=== PATIENT | female | born 1995 | race Caucasian/White ===

== ENCOUNTER 2024-08-01 12:15 | Emergency (ER) | payer BC, SELFPAY ==
[2024-08-01] VITALS (10 sets, daily range): BP systolic 120–148; BP diastolic 64–95; PULSE 58–83; RESP 12–24; O2SAT 98–100
--- NOTE | ~2024-08-01 | XR_ITS ---
EXAMINATION: XR chest 2V 08/01/2024 12:56 INDICATION: Chest pain PROCEDURE: 2 view chest COMPARISON: No prior studies for comparison. FINDINGS: The lungs are clear. The cardiomediastinal silhouette is within normal limits. There are no pleural effusions. There is no pneumothorax suspected. IMPRESSION: 1: NO ACUTE CARDIOPULMONARY DISEASE. Reviewed, dictated and finalized at location A.
--- NOTE | 2024-08-01 12:24 | ECG_ITS ---
Test Date: 2024-08-01 12:31:10 Measurements Intervals [place] Rate: 74 P: 70 MT: 136 QRS: 58 QRSD: 94 T: 25 QT: 384 QTc: 427 Interpretive Statements SINUS RHYTHM WITH MARKED SINUS ARRHYTHMIA BORDERLINE T WAVE ABNORMALITY- ANTERIOR LEADS BASELINE ARTIFACT- I, II, III, AVR, AVL ,AVF BORDERLINE ECG No previous ECG available for comparison Electronically Signed On 08-01-2024 12:46:32 CDT by Hermilo Ventura D.O.
[2024-08-01 12:39] LABS: Basophils Percent Auto 0.3 % (0.2-1.2); Eosinophils Absolute Auto 0.2 K/mm3 (0-0.3); Eosinophils Percent Auto 2.4 % (0-4.4); Hematocrit 42.1 % (37.0-47.0); Hemoglobin 13.6 g/dL (12.0-15.0); Immature Granulocyte Absolute 0.03 K/mm3 (0.00-0.031); Immature Granulocyte Percent A 0.3 % (0-0.5); Lymphocytes Absolute Auto 3.32 K/mm3 (0.9-3.2); Lymphocytes Percent Auto 35.9 % (18.3-44.2); Mean Corpuscular HGB Conc 32.3 g/dl (32-36); Mean Corpuscular Hemoglobin 28.8 pg (26-34); Mean Corpuscular Volume 89.2 fl (80-100); Mean Platelet Volume 10.9 fl (7.4-10.4); Monocytes Absolute Auto 0.7 K/mm3 (0.1-0.6); Monocytes Percent Auto 7.7 % (2.6-8.5); Neutrophils Percent Auto 53.4 % (45.5-73.1); Platelet Count Result 246 k/mm3 (150-375); Red Blood Count 4.72 M/mm3 (4.2-5.4); Red Cell Distribution Width 12.5 % (11.5-14.5); White Blood Count 9.3 K/mm3 (4.5-10.0)
[2024-08-01 12:56] LABS: Alanine Aminotransferase 16 U/L (6-35); Albumin Level 4.7 g/dL (3.5-5.1); Alkaline Phosphatase 77 U/L (38-126); Anion Gap 9 mmol/L (4-12); Aspartate Amino Transferase 22 U/L (14-36); Bilirubin,Total 0.4 mg/dL (0.2-1.3); Blood Urea Nitrogen 12 mg/dL (7-17); Carbon Dioxide 26 mmol/L (22-30); Chloride 103 mmol/L (98-107); Estimated CRCL calculation 89 ml/min; Estimated Glomerular Filt Rate > 60; Glucose 89 mg/dL (65-110); Lipase 83 U/L (23-300); Potassium 3.5 mmol/L (3.4-5.0); Sodium 138 mmol/L (137-145)
[2024-08-01 12:59] LABS: INR 0.8
[2024-08-01 13:00] LABS: Partial Thromboplastin Time 25.5 Seconds (22.3-36.8)
[2024-08-01 13:08] LABS: Troponin I < 0.012 ng/mL (0.000-0.034)
--- OUTSIDE RECORDS SUMMARY | 2024-08-01 13:58 | XMS_ITS | Continuity of Care Document ---
Author Organization [facility] Address [address] [place] [address] Phone Care Team Providers Care Hot Dog Vender Name Role Phone Unavailable Unavailable Unavailable Allergies, Adverse Reactions, Alerts Substance Reaction Status Criticality CEPHALEXIN MONOHYDRATE rash Active No In formation Medications Medication Instructions Dosage Effective Dates (start - stop) Status Comments Mononessa (28) 0.25 mg-35 mcg tablet take 1 Tablet by mouth route every day 1 Tablet - Active Procedures Procedure Date OFFICE/OUTPATIENT VISIT, [facility] Advance Directives Directive Yes / No Effective Date File Name No Information Encounters Encounter Description Practice Location Reason(s) For Visit Diagnoses Date Provider Providers Copied on Encounter [facility], [address], [place], [place], [id number] , [place] tel: [phone] [facility] [place] No Information 4 No Information OFFICE/OUTPA TIENT VISIT, [facility], [address], [place], [place], [id number] , [place] tel: [phone] [facility] [place] control (chief complaint) General counseling on prescription of oral contraceptivesNeed for prophylactic vaccination and inoculation, other viral diseases 3 No Information Family History Family Member Type Diagnosis Age At Onset No Information Payers Payer name Insurance type Covered libertarian ID Authoriza tion(s) No Information Social History Type Description Quantity Date Captured Comments Sex Female Smoking Status No Information Chief Complaint And Reason For Visit No Information Reason For Referral Reason For Referral No Information History Of Present Illness Encounter Date Complaint History Of Prese nt Illness No Information Functional Status Date Functional Assessmen t No Information Instructions Date Instruction Additional Infor mation No Information Assessments Type Assessment Date No Information Patient Care Teams Name Effective Dates (start - stop) Status Members No Information
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
--- NOTE | 2024-08-01 15:03 | ED_ITS ---
HPI - Chest Pain General Chief Complaint: Chest Pain Stated Complaint: chest pain Time Seen by Provider: 08/01/24 13:34 History of Present Illness HPI narrative: 28-year-old female with a past medical history including anxiety. She presents to the emergency department chief complaint of intermittent chest pain for last 4 months. She states approximately twice a month she gets episodes where she gets left-sided chest pain almost like a pressure sensation that is short-lived after a minute and dissipates. She states she had an episode this is in the car while driving to work at about 8:00 a.m.. She called her regular doctor who was encouraging her to come to the ER for evaluation. She has not been evaluated for chest pain previously. She has a history of coronary disease in the family at a young age but no personal history of coronary disease to her knowledge. She has no other comorbidities. Does not take any chronic medications aside from her anxiety medications. No drug use aside from marijuana. She was otherwise in her normal state of health. No fever or chills. No shortness of breath associated with this. No DVT or PE history. No long travel or recent procedures. She was otherwise in her normal state of health. Related Data Allergies Allergy/AdvReac Type Severity Reaction Status Date / Time cephalexin Allergy Unknown Unknown Verified 08/01/24 13:58 Review of Systems 2 Review of Systems: [facility] Family History Family History Mother Hypertension Family history of elevated blood lipids Family history of diabetes mellitus in first degree relative Father Hypertension Family history of osteoarthritis Family history of elevated blood lipids Other Family history of arthritis Social History Social History Smoking status: Current every day smoker Alcohol intake: current Exam 2 Narrative: GENERAL: [Well-appearing, well-nourished, and in no acute distress.] HEAD: [Normocephalic, atraumatic.] EYES: [PERRLA and EOMI.] ENT: Nares clear, no rhinorrhea or epistaxis. Mucous membranes moist. NECK: Supple. CHEST: [Clear to auscultation. No respiratory distress.] HEART: [Regular rate and rhythm]. No murmur heard. [Normal peripheral pulses.] ABDOMEN: [Soft, nondistended], [nontender], [No rigidity or guarding] EXTREMITIES: Normal range of motion. [No edema.] SKIN: Warm, dry, no rash. NEURO: [No focal deficits]. Alert and oriented [x3.] PSYCH: [Normal mood and affect.] Course Vital Signs Vital signs: Vital Signs Pulse Rate 83 08/01/24 12:35 Respiratory Rate 13 08/01/24 12:35 Blood Pressure 148/81 H 08/01/24 12:35 Pulse Oximetry 100 08/01/24 12:35 Pulse Rate 68 08/01/24 15:17 Respiratory Rate 15 08/01/24 15:17 Blood Pressure 139/81 08/01/24 15:17 Pulse Oximetry 100 08/01/24 15:17 MDM - Chest Pain MDM Narrative Medical decision making narrative: 28-year-old otherwise healthy female with history of anxiety presenting to the emergency room with chest pain. She gets occasional chest pains up to twice a month for last 4 months in the left side of her chest that lasts about 1 minute. No precipitating factors. No trauma or injury. No recent procedures. No history of DVT, PE or any cardiac disease. She has normal vital signs with a tachycardia, fever, hypoxia blood pressure concerns. She is not remarkable physical examination. Patient has a history of family with coronary disease at a young age but no personal history to her knowledge. Cardiac workup was ordered here given her symptomatology including serial troponins, EKG and chest x-ray. D-dimer was also ordered for screening a potential thromboembolic disease although very unlikely. Chest x-ray interpreted without any acute findings an EKG was nonischemic. Workup shows no leukocytosis or anemia. Normal platelet count. Coagulation panel within normal limits. Negative troponins. Normal electrolytes, renal and hepatic function panel. Normal lipase. Chest x-ray without any acute cardiopulmonary disease. EKG shows sinus rhythm, no ST segment elevations, depressions or inversions. Negative D-dimer. Patient is safe and stable for discharge home at this time with regular PCP follow-up. Patient's questions were answered she was encouraged to return with any new or worsening concerns. Medical Records Data Attestation: I reviewed the patient's medical records. Lab Data Attestation: I reviewed the patient's lab results. 08/01/24 12:33 08/01/24 12:33 Labs: Lab Results 08/01/24 08/01/24 Range/Units 12:33 15:14 WBC 9.3 (4.5-10.0) K/mm3 RBC 4.72 (4.2-5.4) M/mm3 Hgb 13.6 (12.0-15.0) g/dL Hct 42.1 (37.0-47.0) % MCV 89.2 (80-100) fl MCH 28.8 (26-34) pg MCHC 32.3 (32-36) g/dl RDW 12.5 (11.5-14.5) % Plt Count 246 (150-375) k/mm3 MPV 10.9 H (7.4-10.4) fl Immature Gran % (Auto) 0.3 (0-0.5) % Neut % (Auto) 53.4 (45.5-73.1) % Lymph % (Auto) 35.9 (18.3-44.2) % Don[place]han % (Auto) 7.7 (2.6-8.5) % Eos % (Auto) 2.4 (0-4.4) % Baso % (Auto) 0.3 (0.2-1.2) % Lymph # (Auto) 3.32 H (0.9-3.2) K/mm3 Don[place]han # (Auto) 0.7 H (0.1-0.6) K/mm3 Eos # (Auto) 0.2 (0-0.3) K/mm3 Baso # (Auto) 0.0 (0.0-0.1) K/mm3 Abs Immat Gran (auto) 0.03 (0.00-0.031) K/mm3 Absolute Neuts (auto) 5.0 (1.3-6.7) K/mm3 Absolute Nucleated RBC 0.000 (0.0-0.012) K/mm3 Nucleated RBC % 0.0 (0.0-0.2) % PT 12.0 (11.1-14.7) Seconds INR 0.8 APTT 25.5 (22.3-36.8) Seconds D-Dimer 0.28 (<0.48) ug/mL Sodium 138 (137-145) mmol/L Potassium 3.5 (3.4-5.0) mmol/L Chloride 103 (98-107) mmol/L Carbon Dioxide 26 (22-30) mmol/L Anion Gap 9 (4-12) mmol/L BUN 12 (7-17) mg/dL Creatinine 0.76 (0.7-1.0) mg/dL Estim Creat Clear Calc 89 ml/min Estimated GFR > 60 (59 - ) Glucose 89 (65-110) mg/dL Calcium 9.0 (8.4-10.2) mg/dL Total Bilirubin 0.4 (0.2-1.3) mg/dL AST 22 (14-36) U/L ALT 16 (6-35) U/L Alkaline Phosphatase 77 (38-126) U/L Troponin I < 0.012 < 0.012 (0.000-0.034) ng/mL Total Protein 8.0 (6.3-8.2) g/dL Albumin 4.7 (3.5-5.1) g/dL Lipase 83 (23-300) U/L Imaging Data Attestation: I personally reviewed and interpreted this imaging study as follows: My impression: Impressions Chest X-Ray 08/01/24 13:02 IMPRESSION: 1: NO ACUTE CARDIOPULMONARY DISEASE. ECG Data EKG #1: Attestation: I personally reviewed and interpreted this ECG as follows: ECG completion date: 08/01/24 ECG completion time: 12:31 Prior ECG tracings: not available for review Interpretation: Red trachea rate of 74 beats per minute, QRS 94, QTC 427. NJ interval 136. Sinus rhythm without any ST segment elevations, depressions or inversions. No signs of right heart strain. Good R-wave progression. No previous EKG for comparison. Final interpretation normal sinus rhythm. Discharge Plan Discharge Clinical Impression: Atypical chest pain Patient Disposition: Home Condition: Stable Instructions: Antibiotic Form, Chest Pain (ED), Costochondritis (ED), Chest Wall Pain (ED) Additional Instructions: Cardiac markers were negative, blood clot markers were negative. Your laboratory studies are all reassuring your chest x-ray was clear. Your primary care provider will have to follow you and evaluate you further with any other additional laboratory studies or evaluations that are needed but no urgent or emergent concerns today. Return with any new or worsening concerns at any time. Patient Language: Swedish Follow-up/Referrals: Ayse,Keo Carver MD [Primary Care Provider] - Time of Disposition: 16:39 Quality HEART score for chest pain patients History: slightly suspicious ECG: normal Age: < or = to 45 years Risk factors: no risk factors known Troponin: < or = to 1x normal limit Heart score: 0
--- NOTE | 2024-08-01 15:08 | ECG_ITS ---
Test Date: 2024-08-01 15:12:59 Measurements Intervals [place] Rate: 66 P: 40 MA: 131 QRS: 42 QRSD: 95 T: 9 QT: 413 QTc: 434 Interpretive Statements SINUS RHYTHM WITH SINUS ARRHYTHMIA MINIMAL Q WAVES- HIGH LATERAL LEADS BASELINE ARTIFACT- I, II, III, AVR, AVL, AVF, V1-V6 BORDERLINE ECG Compared to ECG 08/01/2024 12:31:10 No significant changes Electronically Signed On 08-01-2024 15:38:21 CDT by Hermilo Ventura D.O.
[2024-08-01 15:40] LABS: D Dimer 0.28 ug/mL (<0.48)
[2024-08-01 15:48] LABS: Troponin I < 0.012 ng/mL (0.000-0.034)
--- OUTSIDE RECORDS SUMMARY | 2024-08-01 16:10 | XMS_ITS | Continuity of Care Document ---
Author Organization [facility] Address [address] [place] [address] Phone Care Team Providers Care Data Center Engineer Name Role Phone Unavailable Unavailable Unavailable Allergies, Adverse Reactions, Alerts Substance Reaction Status Criticality CEPHALEXIN MONOHYDRATE rash Active No In formation Medications Medication Instructions Dosage Effective Dates (start - stop) Status Comments Mononessa (28) 0.25 mg-35 mcg tablet take 1 Tablet by mouth route every day 1 Tablet - Active Procedures Procedure Date OFFICE/OUTPATIENT VISIT, [facility] Advance Directives Directive Yes / No Effective Date File Name No Information Encounters Encounter Description Practice Location Reason(s) For Visit Diagnoses Date Provider Providers Copied on Encounter [email or web address] [address], [place], [place], [id number] , [place] tel: [phone] [facility] No Information 4 No Information OFFICE/OUTPA TIENT VISIT, [facility], [address], [place], [place], [id number] , [place] tel: [phone] [facility] control (chief complaint) General counseling on prescription of oral contraceptivesNeed for prophylactic vaccination and inoculation, other viral diseases 3 No Information Family History Family Member Type Diagnosis Age At Onset No Information Payers Payer name Insurance type Covered constitution party ID Authoriza tion(s) No Information Social History [...]
== END 2024-08-01 16:50 | disposition home or self-care (01) ==
PROVIDERS: Emergency Medicine; Emergency Provider Student in an Organized Health Care Education/Training Program; PCP Family Medicine
DX: R07.89 Other chest pain (principal); F17.210 Nicotine dependence, cigarettes, uncomplicated; F41.9 Anxiety disorder, unspecified
CPT/HCPCS: 36415; 71046; 80053; 83690; 84484; 85025; 85380; 85610; 85730; 93005; 99284

== ENCOUNTER 2025-03-22 06:45 | Emergency (ER) | payer SELFPAY ==
--- NOTE | ~2025-03-22 | CT_ITS ---
EXAMINATION: CT abdomen pelvis w con DATE: 03/22/2025 08:23 INDICATION: Diffuse abdominal pain TECHNIQUE: Computed tomography (CT) of the abdomen and pelvis was performed with 100 mL Omnipaque-350 intravenous contrast. Automated exposure control and iterative reconstruction technique were employed. The dose-length product was 687.51 mGy-cm. COMPARISON: 04/25/2015 FINDINGS: 3 mm nodule at the lingula which given size and patient age is most likely sequela of old granulomatous disease. Heart size is normal. No pericardial or pleural effusion. Liver, gallbladder, spleen, pancreas, bilateral adrenal glands and kidneys are normal. Bowels including the appendix are normal. Bladder, uterus and bilateral adnexa are normal. No free intraperitoneal gas or fluid. No pathologically enlarged abdominal or pelvic lymphadenopathy. Mild thoracic and lumbar spondylosis. IMPRESSION: 1. No acute intra-abdominal/pelvic process. Reviewed, dictated and finalized at location A. SBURY MACHINE OPERATOR
[2025-03-22 07:01] VITALS: BP 120/85; PULSE 90; RESP 16; TEMP 37; O2SAT 98
--- NOTE | 2025-03-22 07:10 | PC.NURSE ---
Took report at [id number]
[2025-03-22 07:26] LABS: Hematocrit 37.9 % (37.0-47.0); Hemoglobin 12.7 g/dL (12.0-15.0); Immature Granulocyte Percent A 0.3 % (0-0.5); Lymphocytes Absolute Auto 0.90 K/mm3 (0.9-3.2); Mean Corpuscular HGB Conc 33.5 g/dl (32-36); Mean Corpuscular Hemoglobin 29.2 pg (26-34); Mean Corpuscular Volume 87.1 fl (80-100); Nucleated Red Blood Cells Absolute Auto 0.000 K/mm3 (0.0-0.012); Nucleated Red Blood Cells Perc 0.0 % (0.0-0.2); Platelet Count Result 263 k/mm3 (150-375); Red Blood Count 4.35 M/mm3 (4.2-5.4); White Blood Count 11.8 K/mm3 (4.5-10.0)
[2025-03-22 07:43] LABS: Alanine Aminotransferase 29 U/L (6-35); Albumin Level 4.7 g/dL (3.5-5.1); Alkaline Phosphatase 105 U/L (38-126); Aspartate Amino Transferase 34 U/L (14-36); Bilirubin,Total 0.6 mg/dL (0.2-1.3); Blood Urea Nitrogen 11 mg/dL (7-17); Calcium 9.1 mg/dL (8.4-10.2); Carbon Dioxide 18 mmol/L (22-30); Estimated CRCL calculation 114 ml/min; Estimated Glomerular Filt Rate > 60; Glucose 184 mg/dL (65-110); Lipase 125 U/L (23-300); Total Protein 8.1 g/dL (6.3-8.2)
[2025-03-22] MEDS: ONDANSETRON INJ 4 MG/2 ML VIAL IV PUSH (07:43)
--- NOTE | 2025-03-22 07:43 | ED_ITS ---
HPI - General Adult General Chief complaint: Nausea/Vomiting/Diarrhea Stated complaint: Vomiting since 1999 Time Seen by Provider: 03/22/25 07:35 History of Present Illness MD complaint: 29-year-old female presents with abdominal pain nausea vomiting diarrhea. Related Data Allergies Allergy/AdvReac Type Severity Reaction Status Date / Time cephalexin Allergy Unknown Unknown Verified 08/01/24 13:58 [facility] Family History Family History Mother Hypertension Family history of elevated blood lipids Family history of diabetes mellitus in first degree relative Father Hypertension Family history of osteoarthritis Family history of elevated blood lipids Other Family history of arthritis Social History Social History Smoking status: Current every day smoker Alcohol intake: current Course Vital Signs Vital signs: Vital Signs Temperature 37.0 C 03/22/25 07:01 Pulse Rate 90 03/22/25 07:01 Respiratory Rate 16 03/22/25 07:01 Blood Pressure 120/85 03/22/25 07:01 Pulse Oximetry 98 03/22/25 07:01 Oxygen Delivery Room Air 03/22/25 07:01 Temperature 37.0 C 03/22/25 07:01 Pulse Rate 90 03/22/25 07:01 Respiratory Rate 16 03/22/25 07:01 Blood Pressure 120/85 03/22/25 07:01 Pulse Oximetry 98 03/22/25 07:01 Oxygen Delivery Room Air 03/22/25 07:01 [facility] Lab Data 03/22/25 07:17 03/22/25 07:17 Labs: Lab Results 03/22/25 Range/Units 07:17 WBC 11.8 H (4.5-10.0) K/mm3 RBC 4.35 (4.2-5.4) M/mm3 Hgb 12.7 (12.0-15.0) g/dL Hct 37.9 (37.0-47.0) % MCV 87.1 (80-100) fl MCH 29.2 (26-34) pg MCHC 33.5 (32-36) g/dl RDW 12.5 (11.5-14.5) % Plt Count 263 (150-375) k/mm3 MPV 11.5 H (7.4-10.4) fl Immature Gran % (Auto) 0.3 (0-0.5) % Neut % (Auto) 89.7 H (45.5-73.1) % Lymph % (Auto) 7.6 L (18.3-44.2) % [place] % (Auto) 2.2 L (2.6-8.5) % Eos % (Auto) 0.0 (0-4.4) % Baso % (Auto) 0.2 (0.2-1.2) % Lymph # (Auto) 0.90 (0.9-3.2) K/mm3 [place] # (Auto) 0.3 (0.1-0.6) K/mm3 Eos # (Auto) 0.0 (0-0.3) K/mm3 Baso # (Auto) 0.0 (0.0-0.1) K/mm3 Abs Immat Gran (auto) 0.04 H (0.00-0.031) K/mm3 Absolute Neuts (auto) 10.6 H (1.3-6.7) K/mm3 Absolute Nucleated RBC 0.000 (0.0-0.012) K/mm3 Nucleated RBC % 0.0 (0.0-0.2) % Sodium 138 (137-145) mmol/L Potassium 3.4 (3.4-5.0) mmol/L Chloride 109 H (98-107) mmol/L Carbon Dioxide 18 L (22-30) mmol/L Anion Gap 11 (4-12) mmol/L BUN 11 (7-17) mg/dL Creatinine 0.64 L (0.7-1.0) mg/dL Estim Creat Clear Calc 114 ml/min Estimated GFR > 60 (59 - ) Glucose 184 H (65-110) mg/dL Calcium 9.1 (8.4-10.2) mg/dL Total Bilirubin 0.6 (0.2-1.3) mg/dL AST 34 (14-36) U/L ALT 29 (6-35) U/L Alkaline Phosphatase 105 (38-126) U/L Total Protein 8.1 (6.3-8.2) g/dL Albumin 4.7 (3.5-5.1) g/dL Lipase 125 (23-300) U/L Discharge Plan Discharge Patient Language: Portuguese Follow-up/Referrals: UNKNOWN,DOCTOR [Primary Care Provider]
[2025-03-22] MEDS: SODIUM CHLORIDE 0.9% IV 1,000 ML 999 ML IV CONT (07:44)
[2025-03-22] MEDS: FAMOTIDINE 20 MG/2 ML VIAL IV PUSH (07:44)
[2025-03-22 07:51] LABS: Anion Gap 11 mmol/L (4-12); Chloride 109 mmol/L (98-107); Potassium 3.4 mmol/L (3.4-5.0); Sodium 138 mmol/L (137-145)
--- NOTE | 2025-03-22 07:56 | ED_ITS ---
HPI - General Adult General Chief complaint: Nausea/Vomiting/Diarrhea Stated complaint: Vomiting since 1999 Time Seen by Provider: 03/22/25 07:35 History of Present Illness HPI narrative: 29-year-old female presents emergency department with abdominal pain diarrhea nausea vomiting. Patient is got back from a cruise, states she has sick contacts with similar symptoms. She denies any blood in either her vomitus or her diarrhea. No recent antibiotics. States that she has had approximately 10+ episodes of diarrhea nausea vomiting. She also had significant abdominal pain. It is otherwise healthy takes no medications or prior abdominal surgical history. Denies any fevers chills, states she had some alcohol intake on a cruise ship but nothing excessive denies any possibility of being . Related Data Allergies Allergy/AdvReac Type Severity Reaction Status Date / Time cephalexin Allergy Unknown Unknown Verified 08/01/24 13:58 Review of Systems 2 Review of Systems: All systems reviewed & are unremarkable except as noted in HPI and below PMFSH Family History Family History Mother Hypertension Family history of elevated blood lipids Family history of diabetes mellitus in first degree relative Father Hypertension Family history of osteoarthritis Family history of elevated blood lipids Other Family history of arthritis Social History Social History Smoking status: Current every day smoker Alcohol intake: current Exam 2 Narrative: EXAMINATION OF ORGAN SYSTEMS/BODY AREAS: Constitutional: Vital signs per nursing GENERAL: Patient is actively vomiting. HEAD: Normal with no signs of head trauma. EYES: EOMI, conjunctiva normal ENT: Hearing grossly intact LUNGS: Nonlabored breathing. Clear to auscultation bilaterally HEART: [Regular rate and rhythm] ABD: The abdomen is soft nondistended but is moderately tender to palpation throughout without any rebound or guarding. No flank tenderness. EXT: Normal range of motion SKIN: [No rashes or lesions.] NEURO: [Alert. No gross focal sensory or strength deficits.] PSYCH: Normal affect Course Vital Signs Vital signs: Vital Signs Temperature 37.0 C 03/22/25 07:01 Pulse Rate 90 03/22/25 07:01 Respiratory Rate 16 03/22/25 07:01 Blood Pressure 120/85 03/22/25 07:01 Pulse Oximetry 98 03/22/25 07:01 Oxygen Delivery Room Air 03/22/25 07:01 Temperature 37.0 C 03/22/25 07:01 Pulse Rate 86 03/22/25 08:00 Respiratory Rate 16 03/22/25 08:00 Blood Pressure 160/43 H 03/22/25 08:00 Pulse Oximetry 98 03/22/25 08:00 Oxygen Delivery Room Air 03/22/25 07:01 [facility] Differential Diagnosis Differential Diagnosis: 29-year-old female presents with nausea vomiting diarrhea. I was in the differential is a viral gastroenteritis versus alcoholic gastritis versus pancreatitis versus less likely a perforated viscus or an obstructive process. Given the amount of diarrhea and vomiting and concern for acute kidney injury acute renal failure severe electrolyte metabolic disturbance. Will start with IV hydration send basic labs do symptomatic treatment with PPI antiemetic addition to IV Dilaudid for pain. Will obtain a CT abdomen pelvis with IV contrast applied for evaluation or treatment. Results and re-evaluation Upon re-evaluation the patient feels significantly improved. Repeat abdominal exam is soft and non peritoneal. Labs reviewed within acceptable limits. Patient is requesting discharge presents in reasonable given her presentation I will send her home with antiemetics p.o. Bentyl and otherwise work note and strict return precautions she develop new concerning symptoms. All questions answered discharged in stable condition Medical Records I have reviewed the following patient records and this information was taken into consideration when formulating the assessment and plan.: previous labs and previous ER visits Lab Data [facility] Lab Attestation statement: I personally reviewed the patient's lab results. 03/22/25 07:17 03/22/25 07:17 Labs: Lab Results 03/22/25 03/22/25 03/22/25 Range/Units 07:17 08:52 08:57 WBC 11.8 H (4.5-10.0) K/mm3 RBC 4.35 (4.2-5.4) M/mm3 Hgb 12.7 (12.0-15.0) g/dL Hct 37.9 (37.0-47.0) % MCV 87.1 (80-100) fl MCH 29.2 (26-34) pg MCHC 33.5 (32-36) g/dl RDW 12.5 (11.5-14.5) % Plt Count 263 (150-375) k/mm3 MPV 11.5 H (7.4-10.4) fl Immature Gran % (Auto) 0.3 (0-0.5) % Neut % (Auto) 89.7 H (45.5-73.1) % Lymph % (Auto) 7.6 L (18.3-44.2) % [place] % (Auto) 2.2 L (2.6-8.5) % Eos % (Auto) 0.0 (0-4.4) % Baso % (Auto) 0.2 (0.2-1.2) % Lymph # (Auto) 0.90 (0.9-3.2) K/mm3 [place] # (Auto) 0.3 (0.1-0.6) K/mm3 Eos # (Auto) 0.0 (0-0.3) K/mm3 Baso # (Auto) 0.0 (0.0-0.1) K/mm3 Abs Immat Gran (auto) 0.04 H (0.00-0.031) K/mm3 Absolute Neuts (auto) 10.6 H (1.3-6.7) K/mm3 Absolute Nucleated RBC 0.000 (0.0-0.012) K/mm3 Nucleated RBC % 0.0 (0.0-0.2) % Sodium 138 (137-145) mmol/L Potassium 3.4 (3.4-5.0) mmol/L Chloride 109 H (98-107) mmol/L Carbon Dioxide 18 L (22-30) mmol/L Anion Gap 11 (4-12) mmol/L BUN 11 (7-17) mg/dL Creatinine 0.64 L (0.7-1.0) mg/dL Estim Creat Clear Calc 114 ml/min Estimated GFR > 60 (59 - ) Glucose 184 H (65-110) mg/dL Calcium 9.1 (8.4-10.2) mg/dL Total Bilirubin 0.6 (0.2-1.3) mg/dL AST 34 (14-36) U/L ALT 29 (6-35) U/L Alkaline Phosphatase 105 (38-126) U/L Total Protein 8.1 (6.3-8.2) g/dL Albumin 4.7 (3.5-5.1) g/dL Lipase 125 (23-300) U/L Urine Color Yellow (Yellow) Urine Appearance Clear (Clear) Urine pH 7.5 (5.0-9.0) Ur Specific [place] > 1.045 H (1.001-1.035) Urine Protein 1+ H (Negative) mg/dL Urine Glucose (UA) Trace H (Negative) mg/dL Urine Ketones 3+ H (Negative) mg/dL Ur Blood (Man) Negative (Negative) Urine Nitrate Negative (Negative) Urine Bilirubin Negative (Negative) Urine Urobilinogen 1.0 (<2.0) mg/dL Leukocyte Esterase Rfl Negative (Negative) JAVI/UL Urine RBC 0-2 (0-2) /hpf Urine WBC 0-5 (0-3) /hpf Ur Squamous Epith Cells None seen (Few) /hpf Urine Bacteria None seen /hpf Urine Casts 0-2 POC Urine HCG, Qual Negative (Negative) Imaging Data Attestation: I personally reviewed and interpreted this imaging study as follows: My impression: CT scan shows no evidence of free air or acute intra-abdominal process per my interpretation Radiologist's impression: ITS Impressions Abdomen/Pelvis CT 03/22/25 08:24 IMPRESSION: 1. No acute intra-abdominal/pelvic process. Discharge Plan Discharge Clinical Impression: Traveler's diarrhea, Food poisoning Patient Disposition: Home Condition: Stable Instructions: Traveler's Diarrhea (ED), Gastroenteritis (ED) Patient Language: [place] Prescriptions: New dicyclomine 10 mg capsule 10 mg PO BID Qty: 14 0RF loperamide 2 mg capsule 2 mg PO Q6H PRN (Reason: loose stool) Qty: 14 0RF ondansetron 4 mg tablet,disintegrating 4 mg PO Q8H Qty: 14 0RF Follow-up/Referrals: UNKNOWN,DOCTOR [Non-Staff] Time of Disposition: 09:27
[2025-03-22 08:00] VITALS: BP 160/43; PULSE 86; RESP 16; O2SAT 98
--- NOTE | 2025-03-22 08:00 | PC.NURSE ---
Pt stated that she is unable to urinate at this time.
[2025-03-22 08:59] LABS: BEDSIDEPREGUCG Negative (Negative)
[2025-03-22 09:10] LABS: Add Urine Microscopic? YES; Appearance Urine Clear (Clear); Glucose Urine UA Trace mg/dL (Negative); Leukocyte Esterase Ur Negative LEU/UL (Negative); Nitrate Urine Negative (Negative); Non Pathogenic Casts 0-2; Specific Grav Ur > 1.045 (1.001-1.035)
[2025-03-22 09:40] VITALS: BP 125/73; PULSE 97; RESP 16; O2SAT 99
== END 2025-03-22 09:45 | disposition home or self-care (01) ==
PROVIDERS: Student in an Organized Health Care Education/Training Program; Emergency Provider Emergency Medicine; PCP Nurse Practitioner
DX: A05.9 Bacterial foodborne intoxication, unspecified (principal); A09 Infectious gastroenteritis and colitis, unspecified; F17.200 Nicotine dependence, unspecified, uncomplicated
CPT/HCPCS: 36415; 74177; 80053; 81001; 81025; 83690; 85025; 96361; 96374; 96375; 99284; J1790; J2405; J7030; Q9967

== ENCOUNTER 2025-03-23 07:36 | Observation (INO) | payer BC, SELFPAY ==
[2025-03-23 07:48] VITALS: BP 100/66; PULSE 75; RESP 17; TEMP 36.4; O2SAT 100
[2025-03-23] MEDS: METOCLOPRAMIDE HCL INJ 10 MG/2 ML VIAL 5 MG IV PUSH ×2 (08:09→09:33)
[2025-03-23] MEDS: PANTOPRAZOLE SODIUM IV 40 MG VIAL IV PUSH (08:12)
[2025-03-23] MEDS: SODIUM CHLORIDE 0.9% IV 1,000 ML 999 ML IV CONT (08:12)
[2025-03-23 08:43] LABS: Hematocrit 39.0 % (37.0-47.0); Hemoglobin 13.1 g/dL (12.0-15.0); Immature Granulocyte Percent A 0.5 % (0-0.5); Lymphocytes Absolute Auto 1.72 K/mm3 (0.9-3.2); Mean Corpuscular HGB Conc 33.6 g/dl (32-36); Mean Corpuscular Hemoglobin 28.9 pg (26-34); Mean Corpuscular Volume 86.1 fl (80-100); Nucleated Red Blood Cells Absolute Auto 0.000 K/mm3 (0.0-0.012); Nucleated Red Blood Cells Perc 0.0 % (0.0-0.2); Platelet Count Result 301 k/mm3 (150-375); Red Blood Count 4.53 M/mm3 (4.2-5.4); White Blood Count 14.4 K/mm3 (4.5-10.0)
[2025-03-23 08:56] LABS: Alanine Aminotransferase 29 U/L (6-35); Albumin Level 4.6 g/dL (3.5-5.1); Alkaline Phosphatase 97 U/L (38-126); Anion Gap 11 mmol/L (4-12); Aspartate Amino Transferase 39 U/L (14-36); Bilirubin,Total 0.5 mg/dL (0.2-1.3); Blood Urea Nitrogen 11 mg/dL (7-17); Calcium 9.0 mg/dL (8.4-10.2); Carbon Dioxide 20 mmol/L (22-30); Chloride 108 mmol/L (98-107); Estimated CRCL calculation 101 ml/min; Estimated Glomerular Filt Rate > 60; Glucose 137 mg/dL (65-110); Potassium 3.1 mmol/L (3.4-5.0); Sodium 139 mmol/L (137-145); Total Protein 7.9 g/dL (6.3-8.2)
--- NOTE | 2025-03-23 09:22 | ED.NAVMDI ---
HPI - Nausea/Vomiting/Diarrhea General Chief complaint: Nausea/Vomiting/Diarrhea Stated complaint: n/v Time Seen by Provider: 03/23/25 07:53 Source: patient Mode of arrival: ambulatory Limitations: no limitations History of Present Illness HPI Narrative: 29-year-old otherwise healthy here with a complains of nausea, vomiting for past 3 days. Patient states that she was on a cruise ever seen she landed back she has been having these symptoms was seen yesterday here in the ER before, was given fluids and nausea medicine soon after she diet discharge she started having nausea and vomiting again. Denies any fever or chills. This morning when she threw up she had little blood in the vomitus. Denies any fever or chills . Upon chart review patient had a CT of the abdomen and pelvis which was unremarkable done yesterday MD elicited complaint: nausea and vomiting Onset (ago): day(s) (3) Description of vomiting: watery Associated nausea: Yes Associated abdominal pain: No Severity: severe Exacerbating factors: eating Relieving factors: none Context: foreign travel Associated symptoms: denies other symptoms Related Data Allergies Allergy/AdvReac Type Severity Reaction Status Date / Time cephalexin Allergy Unknown Unknown Verified 03/23/25 07:51 Review of Systems Review of Systems: All systems reviewed & are unremarkable except as noted in HPI and below Constitutional: Constitutional: Reports no additional constitutional complaints Eyes: Eyes: Reports no additional eye complaints ENT: Reports system reviewed and no additional complaints, except as documented Cardiovascular: Cardiovascular: Reports no additional cardiovascular complaints Respiratory: Respiratory: Reports no additional respiratory complaints Gastrointestinal: Gastrointestinal: Reports as per HPI Musculoskeletal: Musculoskeletal: Reports no additional musculoskeletal complaints Neurologic: Reports system reviewed and no additional complaints, except as documented [facility] Family History Family History Mother Hypertension Family history of elevated blood lipids Family history of diabetes mellitus in first degree relative Father Hypertension Family history of osteoarthritis Family history of elevated blood lipids Other Family history of arthritis Social History Social History Smoking status: Current every day smoker Alcohol intake: current Exam Narrative: GENERAL: Constantly and Violently Retching HEAD: Normocephalic, atraumatic. EYES: PERRLA and EOMI. ENT: Nares clear, no rhinorrhea or epistaxis. Mucous membranes moist. NECK: Supple. CHEST: Clear to auscultation. No respiratory distress. HEART: Regular rate and rhythm. No murmur heard. Normal peripheral pulses. ABDOMEN: Soft, nontender, nondistended, normal active bowel sounds. EXTREMITIES: Normal range of motion. No edema. SKIN: Warm, dry, no rash. NEURO: No focal deficits. Alert and oriented x3. PSYCH: Normal mood and affect. Course Course Emergency Course: Patient had no further episodes of of nausea or vomiting after receiving metoclopramide feels slightly better from, or movement I came out of the room she started retching again will repeat Reglan and also given IV Valium. She is agreeable with admission. Discussed with hospitalist will accept the patient. Vital Signs Vital signs: Vital Signs Temperature 36.4 C L 03/23/25 07:48 Pulse Rate 75 03/23/25 07:48 Respiratory Rate 17 03/23/25 07:48 Blood Pressure 100/66 03/23/25 07:48 Pulse Oximetry 100 03/23/25 07:48 Oxygen Delivery Room Air 03/23/25 07:48 Temperature 36.4 C L 03/23/25 07:48 Pulse Rate 75 03/23/25 07:48 Respiratory Rate 17 03/23/25 07:48 Blood Pressure 100/66 03/23/25 07:48 Pulse Oximetry 100 03/23/25 07:48 Oxygen Delivery Room Air 03/23/25 07:48 [facility] Narrative Medical decision making narrative: 29-year-old otherwise healthy here with nausea vomiting diarrhea recent trip on a cruise. Was seen yesterday CT was unremarkable will repeat the lab work start IV hydration along with IV metoclopramide Differential Diagnosis Differential Diagnosis: Gastroenteritis, food poisoning Medical Records I have reviewed the following patient records and this information was taken into consideration when formulating the assessment and plan.: previous labs and previous ER visits Lab Data [facility] Lab Attestation statement: I personally reviewed the patient's lab results. 03/23/25 08:08 03/23/25 08:08 Labs: Lab Results 03/23/25 Range/Units 08:08 WBC 14.4 H (4.5-10.0) K/mm3 RBC 4.53 (4.2-5.4) M/mm3 Hgb 13.1 (12.0-15.0) g/dL Hct 39.0 (37.0-47.0) % MCV 86.1 (80-100) fl MCH 28.9 (26-34) pg MCHC 33.6 (32-36) g/dl RDW 12.7 (11.5-14.5) % Plt Count 301 (150-375) k/mm3 MPV 11.7 H (7.4-10.4) fl Immature Gran % (Auto) 0.5 (0-0.5) % Neut % (Auto) 81.6 H (45.5-73.1) % Lymph % (Auto) 12.0 L (18.3-44.2) % [place] % (Auto) 5.6 (2.6-8.5) % Eos % (Auto) 0.0 (0-4.4) % Baso % (Auto) 0.3 (0.2-1.2) % Lymph # (Auto) 1.72 (0.9-3.2) K/mm3 [place] # (Auto) 0.8 H (0.1-0.6) K/mm3 Eos # (Auto) 0.0 (0-0.3) K/mm3 Baso # (Auto) 0.0 (0.0-0.1) K/mm3 Abs Immat Gran (auto) 0.07 H (0.00-0.031) K/mm3 Absolute Neuts (auto) 11.8 H (1.3-6.7) K/mm3 Absolute Nucleated RBC 0.000 (0.0-0.012) K/mm3 Nucleated RBC % 0.0 (0.0-0.2) % Sodium 139 (137-145) mmol/L Potassium 3.1 L (3.4-5.0) mmol/L Chloride 108 H (98-107) mmol/L Carbon Dioxide 20 L (22-30) mmol/L Anion Gap 11 (4-12) mmol/L BUN 11 (7-17) mg/dL Creatinine 0.72 (0.7-1.0) mg/dL Estim Creat Clear Calc 101 ml/min Estimated GFR > 60 (59 - ) Glucose 137 H (65-110) mg/dL Lactic Acid 2.1 H (0.7-2.0) mmol/L Calcium 9.0 (8.4-10.2) mg/dL Total Bilirubin 0.5 (0.2-1.3) mg/dL AST 39 H (14-36) U/L ALT 29 (6-35) U/L Alkaline Phosphatase 97 (38-126) U/L Total Protein 7.9 (6.3-8.2) g/dL Albumin 4.6 (3.5-5.1) g/dL Discharge Plan Discharge Clinical Impression: Intractable nausea and vomiting Patient Disposition: Still a Patient Condition: Stable Patient Language: Kinyarwanda Prescriptions: No Action dicyclomine 10 mg capsule 10 mg PO BID Qty: 14 0RF loperamide 2 mg capsule 2 mg PO Q6H PRN (Reason: loose stool) Qty: 14 0RF ondansetron 4 mg tablet,disintegrating 4 mg PO Q8H Qty: 14 0RF Follow-up/Referrals: Barrett,Donna Amezquita APRN [Primary Care Provider, Unknown] Time of Disposition: 09:29
[2025-03-23 09:29] VITALS: BP 135/96; PULSE 69; RESP 18; O2SAT 99
[2025-03-23] MEDS: diazePAM INJ (*CRX) 10 MG/2 ML SYRINGE 5 MG IV PUSH (09:33)
[2025-03-23] MEDS: SODIUM CHLORIDE 0.9% IV 1,000 ML 125 ML IV CONT ×2 (09:44→22:23)
[2025-03-23 09:56] VITALS: BP 124/76; PULSE 60; RESP 14; O2SAT 98
--- NOTE | 2025-03-23 09:57 | WPCEDHO ---
ED Hand Off Checklist All vitals saved: y IV Site documented:y All med administrations documented:y Triage Note Triage Note Pt to ED w/ reports of N/V and 03/23/25 07:48 mid abd pain rated a 3/10. Pt was seen in the ED yesterday and had labs and imaging, neg findings. 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 Pt took an ODT Zofran today, but states she is unable to keep anything down including fluids. Decreased urine output. Pt actively dry heaving in triage. Allergies cephalexin Allergy (Unknown, Verified 03/23/25 07:51) Unknown Family History (Last Reviewed 03/23/25 @ 09:25 by Twin Olivares MD) Mother Hypertension Family history of elevated blood lipids Family history of diabetes mellitus in first degree relative Father Hypertension Family history of osteoarthritis Family history of elevated blood lipids Other Family history of arthritis Active Medications including assessments/comments Sodium Chloride (Normal Saline Iv) 1,000 mls @ 125 mls/hr IV CONT .Q8H [facility] Last Admin: 03/23/25 09:44 Dose: 125 mls/hr Documented By: ANT Infusion/Titration Document 03/23/25 09:44 ANT (Rec: 03/23/25 09:44 ANT [id number]) Intake IV Site Peripheral Access Left Antecubital Container Volume 1,000 Waste Amount 0 Dosing Infusion Rate 125 Cumulative Dose Not Applicable Increase/Decrease Started Elapsed Time Elapsed Time ( 0m minutes) Administered/Completed Medications Discontinued Medications Diazepam (Diazepam Inj (*Crx) 10 Mg/2 Ml Syringe) 5 mg IV PUSH ONCE ONE Stop: 03/23/25 09:27 Last Admin: 03/23/25 09:33 Dose: 5 mg Documented By: ANT Sodium Chloride (Normal Saline Iv) 1,000 mls @ 999 mls/hr IV CONT .Q1H1M STA Stop: 03/23/25 08:59 Last Infusion: 03/23/25 09:00 Dose: Infused Documented By: Admin: 03/23/25 08:12 Dose: 999 mls/hr Documented By: ANT Metoclopramide HCl (Metoclopramide Hcl Inj 10 Mg/2 Ml Vial) 5 mg IV PUSH ONCE STA Stop: 03/23/25 08:00 Last Admin: 03/23/25 08:09 Dose: 5 mg Documented By: ANT Metoclopramide HCl (Metoclopramide Hcl Inj 10 Mg/2 Ml Vial) 5 mg IV PUSH ONCE STA Stop: 03/23/25 09:27 Last Admin: 03/23/25 09:33 Dose: 5 mg Documented By: ANT Pantoprazole Sodium (Pantoprazole Sodium Iv 40 Mg Vial) 40 mg IV PUSH ONCE STA Stop: 03/23/25 08:00 Last Admin: 03/23/25 08:12 Dose: 40 mg Documented By: ANT Interventions/Assessments IV / Saline Lock, Insert Start: 03/23/25 07:37 Freq: Status: Active Protocol: Document 03/23/25 07:58 ANT (Rec: 03/23/25 07:58 ANT [id number]) IV Assessment Peripheral Access Left Antecubital IV Catheter Access Initiated IV Insertion Date 03/23/25 IV Insertion Time 07:58 Catheter Gauge 20 IV Site Assessment WNL IV Care and WNL Maintenance PA: Gastrointestinal Assessment Start: 03/23/25 07:37 Freq: Status: Active Protocol: Document 03/23/25 07:56 ANT (Rec: 03/23/25 07:57 ANT [id number]) GI Assessment Gastrointestinal Nausea,Pain,Vomiting Symptoms Description Soft,Tender Date of Last Bowel 03/21/25 Movement Last Vital Signs Temperature 97.5 F L 03/23/25 07:48 Pulse Rate 60 03/23/25 09:56 Respiratory Rate 14 03/23/25 09:56 Pulse Oximetry 98 03/23/25 09:56 Blood Pressure 124/76 03/23/25 09:56 Blood Pressure Mean 92 03/23/25 09:56 Blood Pressure Position Sitting 03/23/25 07:48 Oxygen Delivery Room Air 03/23/25 07:48 Weight 89 kg 03/23/25 07:48 Last Result - Abnormals Only WBC 14.4 K/mm3 (4.5-10.0) H 03/23/25 08:08 MPV 11.7 fl (7.4-10.4) H 03/23/25 08:08 Neut % (Auto) 81.6 % (45.5-73.1) H 03/23/25 08:08 Lymph % (Auto) 12.0 % (18.3-44.2) L 03/23/25 08:08 [place] # (Auto) 0.8 K/mm3 (0.1-0.6) H 03/23/25 08:08 Abs Immat Gran (auto) 0.07 K/mm3 (0.00-0.031) H 03/23/25 08:08 Absolute Neuts (auto) 11.8 K/mm3 (1.3-6.7) H 03/23/25 08:08 Potassium 3.1 mmol/L (3.4-5.0) L 03/23/25 08:08 Chloride 108 mmol/L (98-107) H 03/23/25 08:08 Carbon Dioxide 20 mmol/L (22-30) L 03/23/25 08:08 Glucose 137 mg/dL (65-110) H 03/23/25 08:08 Lactic Acid 2.1 mmol/L (0.7-2.0) H 03/23/25 08:08 AST 39 U/L (14-36) H 03/23/25 08:08 Most Recent Suicide Severity Rating Suicide Severity Rating NO RISK INDICATED 03/23/25 07:48
[2025-03-23 10:18] VITALS: BMI 36.7
--- NOTE | 2025-03-23 10:36 | ADMGEN ---
This patient, Magda Decker, was admitted to [facility] Surg Room 320-01. Patient/family oriented to hospital policies and general routines including ID bracelet, bed and alarms, visiting hours, pain management, procedures, bathroom and other care routines, personal items, smoking policy, room service/diet, and visiting hours. Information on how to activate the Rapid Response Team has been discussed. Patient/Family are encouraged to report perceived risks to care and to ask questions if they do not understand what they are told or what they should do. Lorraine HAMMONDS got report from ER NURSE.
--- NOTE | 2025-03-23 10:37 | PM.IMHP2 ---
H&P: HPI History of Present Illness Date/Time: 03/23/25 10:37 Chief Complaint: N/V/D Narrative: 29-year-old female with past medical history of anxiety presents to the ED on 03/23/2025 with complaints of intractable nausea and vomiting. Patient returned from a cruise on 03/21/2025 and began vomiting while waiting in the airport. She initially presented to the ED on 03/22 after having over 10 episodes of emesis and the inability to keep anything down. She was sent home after hydration and feeling better. She also endorsed diarrhea but is unsure how many episodes. She has abdominal pain. Denies fevers but endorses chills. Today, she states she noticed blood in her vomit. Patient was noted to be actively dry heaving in triage. Initial vital signs 100/66, heart rate 75, respirations 17, afebrile and 100% on room air. Lab workup reveals leukocytosis with WBC 14.4, potassium 3.1, chloride 108, carbon dioxide 20, glucose 137, lactate 2.1 with improvement after fluid, AST 39. Abdomen pelvis CT on 03/22 shows no acute process. Review of Systems Review of Systems: All systems reviewed & are unremarkable except as noted in HPI and below PMFSH Family History Family History Mother Hypertension Family history of elevated blood lipids Family history of diabetes mellitus in first degree relative Father Hypertension Family history of osteoarthritis Family history of elevated blood lipids Other Family history of arthritis Social History Social History Smoking status: Current every day smoker Alcohol intake: current Meds Home Medications and Allergies Home Medications ?Medication ?Instructions ?Recorded ?Confirmed ?Type dicyclomine 10 mg capsule 10 mg PO BID #14 caps 03/22/25 03/23/25 Rx loperamide 2 mg capsule 2 mg PO Q6H PRN loose stool #14 03/22/25 03/23/25 Rx caps ondansetron 4 mg disintegrating 4 mg PO Q8H #14 tabs 03/22/25 03/23/25 Rx tablet omeprazole 20 mg capsule,delayed 20 mg PO DAILY 03/23/25 03/23/25 History release sertraline 50 mg tablet 50 mg PO .evening 03/23/25 03/23/25 History Allergies Allergy/AdvReac Type Severity Reaction Status Date / Time cephalexin Allergy Mild Photosensit Verified 03/23/25 10:59 ivity Vital Signs Vital Signs - 24 hr 03/23/25 07:48 03/23/25 09:29 03/23/25 09:56 Temperature 97.5 F L Pulse Rate 75 69 60 Respiratory Rate 17 18 14 Blood Pressure 100/66 135/96 H 124/76 Pulse Oximetry 100 99 98 Oxygen Delivery Room Air Exam Narrative: GENERAL: non-toxic appearing, in no acute distress. HEAD: Normocephalic, atraumatic. EYES: PERRLA. Conjunctivae clear. NOSE: Normal no drainage. THROAT: Pharynx clear, no exudate. NECK: Trachea midline. Thyroid not palpable. No adenopathy, no masses. RESPIRATORY: Airway patent, respirations nonlabored. CTA. CARDIOVASCULAR: Regular rate and rhythm BREASTS: Defer GASTROINTESTINAL: Abdomen is soft and mildly tender on palpation. No organomegaly. Bowel sounds normal in all quadrants. GENITOURINARY: Defer MUSCULOSKELETAL: Moves all extremities. No gross deformities. SKIN: Warm, dry, normal color. NEURO: A&O X4. Speech clear PSYCHIATRIC: Normal interaction Results Labs Labs: Short CBC 03/23/25 Range/Units 08:08 WBC 14.4 H (4.5-10.0) K/mm3 Hgb 13.1 (12.0-15.0) g/dL Hct 39.0 (37.0-47.0) % Plt Count 301 (150-375) k/mm3 BMP 03/23/25 08:08 Sodium 139 Potassium 3.1 L Chloride 108 H Carbon Dioxide 20 L BUN 11 Creatinine 0.72 Glucose 137 H Calcium 9.0 Liver Function 03/23/25 Range/Units 08:08 Total Bilirubin 0.5 (0.2-1.3) mg/dL AST 39 H (14-36) U/L ALT 29 (6-35) U/L Alkaline Phosphatase 97 (38-126) U/L Albumin 4.6 (3.5-5.1) g/dL Assessment and Plan Assessment and plan (1) Intractable nausea and vomiting: Code(s): R11.2 - Nausea with vomiting, unspecified Status: Acute Assessment and Plan: Patient recently returned from a cruise presents with intractable nausea and vomiting with some episodes of diarrhea. States other people she was with have similar symptoms but not as severe as hers. -NS at 125 -antiemetics p.r.n. -monitor electrolytes-replace as needed -Bentyl b.i.d. for abdominal pain -stool culture and norovirus ordered -clear liquid diet-advance as tolerated (2) Hyperglycemia: Code(s): R73.9 - Hyperglycemia, unspecified Status: Acute Assessment and Plan: Glucose elevated yesterday at 184 and today 137. Family history of diabetes. -A1c pending Plan Diet: clears-advance as tolerated DVT prophylaxis: Lovenox lines/drains: PIV Fluids: 1 L NS in ED-NS @ 125 Code status: Full Prior Studies I have reviewed the following patient records and this information was taken into consideration when formulating the assessment and plan.: previous labs, previous ER visits, previous hospitalizations and previous clinic visits Time Spent with Patient Time with patient: 45 - 74 minutes
[2025-03-23] MEDS: PROMETHAZINE HCL 25 MG/ML AMPUL 12.5 MG IV PUSH (10:52)
[2025-03-23 16:00] VITALS: BP 114/67; PULSE 71; RESP 17; TEMP 37; O2SAT 100
[2025-03-23] MEDS: DICYCLOMINE HCL 10 MG CAPSULE PO (16:01)
[2025-03-23] MEDS: ONDANSETRON INJ 4 MG/2 ML VIAL IV PUSH ×2 (16:01→20:29)
[2025-03-23] MEDS: KCL 20 MEQ/SW 100 ML 100 ML 50 MEQ IVPB (16:01)
[2025-03-23] MEDS: SERTRALINE HCL 50 MG TABLET PO (17:35)
[2025-03-23 18:36] LABS: Hemoglobin A1C 5.4 % (<5.7)
[2025-03-23 18:41] LABS: Magnesium 2.3 mg/dL (1.6-2.3)
[2025-03-23 20:00] VITALS: BP 135/82; PULSE 68; RESP 18; TEMP 37; O2SAT 100
[2025-03-23] MEDS: ENOXAPARIN 40 MG/0.4 ML SYRINGE SUB-Q (20:29)
[2025-03-24] MEDS: PROMETHAZINE HCL 25 MG/ML AMPUL 12.5 MG IV PUSH ×2 (00:56→10:56)
[2025-03-24 04:00] VITALS: BP 137/77; PULSE 65; RESP 20; TEMP 36.9; O2SAT 99
[2025-03-24] MEDS: ACETAMINOPHEN 325 MG TABLET 650 MG PO ×2 (06:30→14:00)
[2025-03-24] MEDS: ONDANSETRON INJ 4 MG/2 ML VIAL IV PUSH ×3 (06:30→20:59)
[2025-03-24] MEDS: SODIUM CHLORIDE 0.9% IV 1,000 ML 125 ML IV CONT ×2 (06:40→17:11)
[2025-03-24 06:55] LABS: Hematocrit 38.4 % (37.0-47.0); Hemoglobin 12.2 g/dL (12.0-15.0); Immature Granulocyte Percent A 0.4 % (0-0.5); Lymphocytes Absolute Auto 2.06 K/mm3 (0.9-3.2); Mean Corpuscular HGB Conc 31.8 g/dl (32-36); Mean Corpuscular Hemoglobin 29.0 pg (26-34); Mean Corpuscular Volume 91.4 fl (80-100); Nucleated Red Blood Cells Absolute Auto 0.000 K/mm3 (0.0-0.012); Nucleated Red Blood Cells Perc 0.0 % (0.0-0.2); Platelet Count Result 221 k/mm3 (150-375); Red Blood Count 4.20 M/mm3 (4.2-5.4); White Blood Count 9.2 K/mm3 (4.5-10.0)
--- NOTE | 2025-03-24 07:08 | P.PNIM_ITS ---
Assessment and Plan Assessment and Plan (1) Intractable nausea and vomiting: Code(s): R11.2 - Nausea with vomiting, unspecified Status: Acute Assessment and Plan: Patient recently returned from a cruise presents with intractable nausea and vomiting with some episodes of diarrhea. States other people she was with have similar symptoms but not as severe as hers. -NS at 125 -antiemetics p.r.n. -monitor electrolytes-replace as needed -Bentyl b.i.d. for abdominal pain -stool culture and norovirus ordered -clear liquid diet-advance as tolerated (2) Hypokalemia: Code(s): E87.6 - Hypokalemia Status: Acute Assessment and Plan: - K+ 3.0 - ordered IV replacement - recheck in AM Plan DVT prophylaxis: Lovenox Code status: Full Dispo: home likely tomorrow Medical Record Review I have reviewed the following patient records and this information was taken into consideration when formulating the assessment and plan.: previous labs Subjective Date/time seen: 03/24/25 07:08 Interval history: Patient seen and examined at bedside. Still with nausea, no vomiting. Tolerating some liquids this AM. Discussed abnormal labs and probable need to stay in the hospital one more night. Review of Systems Review of Systems: All systems reviewed & are unremarkable except as noted in HPI and below Exam Narrative: General: NAD Eyes: EOMI ENT: neck supple Cardiovascular: Regular rate and rhythm Respiratory: Clear to auscultation, respirations even and unlabored on RA Gastrointestinal: Soft, non tender Genitourinary: no suprapubic tenderness Musculoskeletal: No edema Skin: warm, dry Neuro: Alert. Psych: Mood appropriate Objective Data Vital Signs Vital Signs: Vital Signs - 24 hr 03/23/25 07:48 03/23/25 09:29 03/23/25 09:56 Temperature 97.5 F L Pulse Rate 75 69 60 Respiratory Rate 17 18 14 Blood Pressure 100/66 135/96 H 124/76 Pulse Oximetry 100 99 98 Oxygen Delivery Room Air 03/23/25 16:00 03/23/25 20:00 03/24/25 04:00 Temperature 98.6 F 98.6 F 98.4 F Pulse Rate 71 68 65 Respiratory Rate 17 18 20 Blood Pressure 114/67 135/82 137/77 Pulse Oximetry 100 100 99 Oxygen Delivery Intake/Output Intake/Output: Intake & Output 03/21/25 03/22/25 03/23/25 03/24/25 23:59 23:59 23:59 23:59 Intake Total 2620 1400 Balance 2620 1400 Meds/Results Medications: Active Medications Generic Name Dose Route Start Last Admin Trade Name Freq PRN Reason Stop Dose Admin Acetaminophen 650 mg 03/24/25 06:05 03/24/25 06:30 Acetaminophen 325 Mg Tablet PO 650 mg Q6H PRN Administration headache Dicyclomine HCl 10 mg 03/23/25 17:00 03/23/25 16:01 Dicyclomine Hcl 10 Mg Capsule PO 10 mg BID PARRISH Administration Enoxaparin Sodium 40 mg 03/23/25 21:00 03/23/25 20:29 Enoxaparin 40 Mg/0.4 Ml Syringe SUB-Q 40 mg HS PARRISH Administration Sodium Chloride 1,000 mls @ 125 mls/hr 03/23/25 09:35 03/24/25 06:40 Normal Saline Iv IV CONT 125 mls/hr .Q8H PARRISH Administration Ondansetron HCl 4 mg 03/23/25 15:44 03/24/25 06:30 Ondansetron Inj 4 Mg/2 Ml Vial IV PUSH 4 mg Q4H PRN Administration Nausea And Vomiting Pantoprazole Sodium 40 mg 03/24/25 09:00 Pantoprazole 40 Mg Tablet PO QAM PARRISH Promethazine HCl 12.5 mg 03/23/25 09:31 03/24/25 00:56 Promethazine Hcl 25 Mg/Ml Ampul IV PUSH 12.5 mg Q6H PRN Administration Nausea Sertraline HCl 50 mg 03/23/25 18:00 03/23/25 17:35 Sertraline Hcl 50 Mg Tablet PO 50 mg QPM PARRISH Administration Labs Labs: Laboratory Results - last 24 hr 03/23/25 03/23/25 03/23/25 08:08 11:04 18:22 WBC 14.4 H RBC 4.53 Hgb 13.1 Hct 39.0 MCV 86.1 MCH 28.9 MCHC 33.6 RDW 12.7 Plt Count 301 MPV 11.7 H Immature Gran % (Auto) 0.5 Neut % (Auto) 81.6 H Lymph % (Auto) 12.0 L [place] % (Auto) 5.6 Eos % (Auto) 0.0 Baso % (Auto) 0.3 Lymph # (Auto) 1.72 [place] # (Auto) 0.8 H Eos # (Auto) 0.0 Baso # (Auto) 0.0 Abs Immat Gran (auto) 0.07 H Absolute Neuts (auto) 11.8 H Absolute Nucleated RBC 0.000 Nucleated RBC % 0.0 Sodium 139 Potassium 3.1 L Chloride 108 H Carbon Dioxide 20 L Anion Gap 11 BUN 11 Creatinine 0.72 Estim Creat Clear Calc 101 Estimated GFR > 60 Glucose 137 H Hemoglobin A1c 5.4 Lactic Acid 2.1 H 1.2 Calcium 9.0 Magnesium 2.3 Total Bilirubin 0.5 AST 39 H ALT 29 Alkaline Phosphatase 97 Total Protein 7.9 Albumin 4.6 03/24/25 06:26 WBC 9.2 RBC 4.20 Hgb 12.2 Hct 38.4 MCV 91.4 D MCH 29.0 MCHC 31.8 L RDW 12.8 Plt Count 221 MPV 11.5 H Immature Gran % (Auto) 0.4 Neut % (Auto) 68.4 Lymph % (Auto) 22.4 [place] % (Auto) 8.1 Eos % (Auto) 0.3 Baso % (Auto) 0.4 Lymph # (Auto) 2.06 [place] # (Auto) 0.7 H Eos # (Auto) 0.0 Baso # (Auto) 0.0 Abs Immat Gran (auto) 0.04 H Absolute Neuts (auto) 6.3 Absolute Nucleated RBC 0.000 Nucleated RBC % 0.0 Sodium Potassium Chloride Carbon Dioxide Anion Gap BUN Creatinine Estim Creat Clear Calc Estimated GFR Glucose Hemoglobin A1c Lactic Acid Calcium Magnesium Total Bilirubin AST ALT Alkaline Phosphatase Total Protein Albumin
[2025-03-24 07:14] LABS: Anion Gap 7 mmol/L (4-12); Blood Urea Nitrogen 8 mg/dL (7-17); Calcium 7.8 mg/dL (8.4-10.2); Carbon Dioxide 23 mmol/L (22-30); Chloride 109 mmol/L (98-107); Estimated CRCL calculation 121 ml/min; Estimated Glomerular Filt Rate > 60; Glucose 99 mg/dL (65-110); Potassium 3.0 mmol/L (3.4-5.0); Sodium 139 mmol/L (137-145)
[2025-03-24 08:00] VITALS: BP 138/83; PULSE 63; RESP 18; TEMP 36.3; O2SAT 100
[2025-03-24] MEDS: DICYCLOMINE HCL 10 MG CAPSULE PO ×2 (09:24→17:04)
[2025-03-24] MEDS: PANTOPRAZOLE 40 MG TABLET PO (09:24)
[2025-03-24] MEDS: POTASSIUM CHLORIDE INJ 40 MEQ in SODIUM CHLORIDE 0.9% IV 500 ML 130 MEQ IVPB (09:48)
[2025-03-24 12:00] VITALS: BP 136/78; PULSE 58; RESP 16; TEMP 36.9; O2SAT 100
[2025-03-24 16:00] VITALS: BP 152/78; PULSE 57; RESP 18; TEMP 37; O2SAT 100
[2025-03-24] MEDS: SERTRALINE HCL 50 MG TABLET PO (17:04)
[2025-03-24 20:00] VITALS: BP 145/74; PULSE 54; RESP 16; TEMP 36.8; O2SAT 100
[2025-03-24] MEDS: ENOXAPARIN 40 MG/0.4 ML SYRINGE SUB-Q (20:59)
[2025-03-24 23:55] VITALS: BP 145/82; PULSE 54; RESP 18; TEMP 36.8; O2SAT 99
[2025-03-25 04:00] VITALS: BP 149/82; PULSE 52; RESP 20; TEMP 36.7; O2SAT 98
--- NOTE | 2025-03-25 04:25 | PC.NURSE ---
pt called out stating that her IV was hurting and she wanted it out. IV was checked flushed without difficulty. pt stated she still wanted it out because it hurt. this nurse explained to pt that she could put another IV in and pt refused. she was educated that her Nauseous meds was IV and if needed she will be unable to receive it fast enough she stated she understood but at this time she just wanted to rest.
[2025-03-25 06:10] LABS: Hematocrit 38.9 % (37.0-47.0); Hemoglobin 12.9 g/dL (12.0-15.0); Immature Granulocyte Percent A 0.4 % (0-0.5); Lymphocytes Absolute Auto 1.94 K/mm3 (0.9-3.2); Mean Corpuscular HGB Conc 33.2 g/dl (32-36); Mean Corpuscular Hemoglobin 29.7 pg (26-34); Mean Corpuscular Volume 89.6 fl (80-100); Nucleated Red Blood Cells Absolute Auto 0.000 K/mm3 (0.0-0.012); Nucleated Red Blood Cells Perc 0.0 % (0.0-0.2); Platelet Count Result 238 k/mm3 (150-375); Red Blood Count 4.34 M/mm3 (4.2-5.4); White Blood Count 8.9 K/mm3 (4.5-10.0)
[2025-03-25 06:35] LABS: Alanine Aminotransferase 71 U/L (6-35); Albumin Level 3.8 g/dL (3.5-5.1); Alkaline Phosphatase 75 U/L (38-126); Anion Gap 4 mmol/L (4-12); Aspartate Amino Transferase 59 U/L (14-36); Bilirubin,Total 0.6 mg/dL (0.2-1.3); Blood Urea Nitrogen 6 mg/dL (7-17); Calcium 7.9 mg/dL (8.4-10.2); Carbon Dioxide 26 mmol/L (22-30); Chloride 106 mmol/L (98-107); Estimated CRCL calculation 101 ml/min; Estimated Glomerular Filt Rate > 60; Glucose 93 mg/dL (65-110); Magnesium 2.3 mg/dL (1.6-2.3); Potassium 3.3 mmol/L (3.4-5.0); Sodium 136 mmol/L (137-145); Total Protein 6.5 g/dL (6.3-8.2)
[2025-03-25 08:00] VITALS: BP 155/84; PULSE 55; RESP 16; TEMP 36.9; O2SAT 100
[2025-03-25] MEDS: PROMETHAZINE HCL 12.5 MG TABLET PO (10:34)
[2025-03-25] MEDS: PANTOPRAZOLE 40 MG TABLET PO (10:35)
[2025-03-25] MEDS: POTASSIUM CHLORIDE 20 MEQ PACKET (FOR LIQUID) 40 MEQ PO (10:35)
[2025-03-25] MEDS: FAMOTIDINE 20 MG TABLET PO (10:35)
[2025-03-25] MEDS: DICYCLOMINE HCL 10 MG CAPSULE PO (10:35)
[2025-03-25 12:00] VITALS: BP 151/79; PULSE 52; RESP 16; TEMP 36.9; O2SAT 99
[2025-03-25 15:45] LABS: Anion Gap 5 mmol/L (4-12); Blood Urea Nitrogen 7 mg/dL (7-17); Calcium 8.8 mg/dL (8.4-10.2); Carbon Dioxide 26 mmol/L (22-30); Chloride 106 mmol/L (98-107); Estimated CRCL calculation 95 ml/min; Estimated Glomerular Filt Rate > 60; Glucose 96 mg/dL (65-110); Potassium 3.4 mmol/L (3.4-5.0); Sodium 137 mmol/L (137-145)
--- NOTE | 2025-03-25 15:59 | P.DS_ITS ---
DS: Admitting Diagnosis Discharge Date 03/25/25 Admitting Diagnosis - gastroenteritis DS: Discharge Diagnosis Discharge Diagnosis (1) Intractable nausea and vomiting: Code(s): R11.2 - Nausea with vomiting, unspecified Status: Acute (2) Hypokalemia: Code(s): E87.6 - Hypokalemia Status: Acute DS: Summary Hospital Course Reason for hospitalization: - gastroenteritis Hospital Course: Magda Decker is a 29-year-old female who presented with intractable nausea, vomiting, and diarrhea following recent travel on a cruise. She initially required two emergency department visits for persistent symptoms, including an episode of hematemesis. On admission, she was noted to be actively retching and unable to tolerate oral intake. Initial laboratory evaluation revealed leukocytosis, hypokalemia (K+ 3.1 mmol/L), mild metabolic acidosis, hyperglycemia, and mildly elevated AST. Abdominal imaging was unremarkable. She was managed with intravenous fluids, antiemetics (ondansetron and promethazine), and electrolyte monitoring. Potassium was replaced intravenously and then transitioned to oral supplementation as her levels normalized. She was able to advance to a regular diet and maintain adequate oral intake without further emesis. Her potassium remained stable on oral supplementation, and she was discharged with a 3-day supply of oral potassium. Blood pressure was intermittently mildly elevated during her stay; she was counseled to follow up with her primary care provider for ongoing monitoring. She was also advised to have a repeat comprehensive metabolic panel in 5?7 days to reassess potassium and liver enzyme levels, as her liver enzymes remained mildly elevated at discharge. She tolerated her regular diet at the time of discharge and was clinically stable. Time Spent with Patient Time attestation: Total time spent providing and/or coordinating discharge services: Time spent: Greater than 30 minutes Exam Narrative: General: NAD Eyes: EOMI ENT: neck supple Cardiovascular: Regular rate and rhythm Respiratory: Clear to auscultation, respirations even and unlabored on RA Gastrointestinal: Soft, non tender Genitourinary: no suprapubic tenderness Musculoskeletal: No edema Skin: warm, dry Neuro: Alert. Psych: Mood appropriate DS: Data Data Completed and Pending Labs on day of discharge: Labs from last 24 hours 03/25/25 03/25/25 03/23/25 15:15 05:31 10:33 WBC 8.9 RBC 4.34 Hgb 12.9 Hct 38.9 MCV 89.6 MCH 29.7 MCHC 33.2 RDW 12.4 Plt Count 238 MPV 11.4 H Immature Gran % (Auto) 0.4 Neut % (Auto) 67.5 Lymph % (Auto) 21.7 [place] % (Auto) 9.1 H Eos % (Auto) 0.7 Baso % (Auto) 0.6 Lymph # (Auto) 1.94 [place] # (Auto) 0.8 H Eos # (Auto) 0.1 Baso # (Auto) 0.1 Abs Immat Gran (auto) 0.04 H Absolute Neuts (auto) 6.0 Absolute Nucleated RBC 0.000 Nucleated RBC % 0.0 Sodium 137 136 L Potassium 3.4 3.3 L Chloride 106 106 Carbon Dioxide 26 26 Anion Gap 5 4 BUN 7 6 L Creatinine 0.78 0.73 Estim Creat Clear Calc 95 101 Estimated GFR > 60 > 60 Glucose 96 93 Calcium 8.8 7.9 L Magnesium 2.3 Total Bilirubin 0.6 AST 59 H ALT 71 H Alkaline Phosphatase 75 Total Protein 6.5 Albumin 3.8 Stool Norovirus GI (PCR) Pending Stool Norovirus GII (PCR) Pending Discharge Plan Discharge Attending physician on discharge: Oneal Escoto Consulting providers: Darline Santos Discharging Clinician: Darline Santos Patient Disposition: Home Activity: as tolerated Diet: regular Discharge Instructions: Diagnosis:?Gastroenteritis Medications & Supplements: * Potassium Supplements:?Take as prescribed. Do not skip doses. If you experience muscle weakness, irregular heartbeat, or tingling, contact your provider. * Phenergan (Promethazine):?Use as directed for nausea. Do not drive or operate heavy machinery after taking, as it may cause drowsiness. * Pepcid (Famotidine):?Take [id number] as needed for acid reflux, following package instructions. Hydration: * Drink plenty of clear fluids (water, oral rehydration solutions, clear broths) throughout the day. * Avoid caffeine, alcohol, and sugary drinks. * Eat small, bland meals as tolerated (bananas, rice, applesauce, toast). Follow-Up: * Obtain repeat bloodwork in 5?7 days to recheck potassium levels and liver enzymes. * Your blood pressure was high in the hospital. Have your primary care provide monitor your blood pressure When to Seek Medical Attention: * Signs of dehydration (dizziness, dry mouth, decreased urination) * Persistent vomiting or inability to keep fluids down * Severe abdominal pain * Blood in stool or vomit * Signs of low potassium (muscle cramps, weakness, palpitations) Other Instructions: * Rest as needed. * Wash hands frequently to prevent spreading infection. * Avoid sharing utensils, cups, or towels with others until symptoms resolve. If you have any questions or your symptoms worsen, contact your healthcare provi shae. Patient Instructions: Antibiotic Form Patient Language: Bengali Stand Alone Forms: General Discharge Information Follow-up/Referrals: Cheng,Donna Amezquita APRN [Primary Care Provider, Unknown] - Call for Appointment Referral Note: 1 week Discharge Medications: New famotidine 20 mg Tablet 20 mg PO Q12HR PRN (Reason: heartburn) Qty: 20 0RF promethazine 12.5 mg tablet 12.5 mg PO TID PRN (Reason: nausea and vomiting) Qty: 20 0RF Rx Instructions: 3 doses during day; last dose no later than 4 hr before bedtime potassium chloride [Klor-Con] 20 mEq packet 20 meq PO DAILY 3 Days Qty: 3 0RF Continued omeprazole 20 mg capsule,delayed release(DR/EC) 20 mg PO DAILY sertraline 50 mg tablet 50 mg PO .evening Rx Instructions: take at 5pm dicyclomine 10 mg capsule 10 mg PO BID Qty: 14 0RF loperamide 2 mg capsule 2 mg PO Q6H PRN (Reason: loose stool) Qty: 14 0RF ondansetron 4 mg tablet,disintegrating 4 mg PO Q8H Qty: 14 0RF Other Ambulatory Orders: Comprehensive Metabolic Panel (Routine) Timeframe: 5 Days Location: Determined by Patient Ordered By: Darline Santos Date of admission: 03/23/25 09:31 Primary Care Provider: Donna Anand Admitting Provider: Oneal Escoto Attending physician on admission: Oneal Escoto Condition: Stable
== END 2025-03-25 16:40 | disposition home or self-care (01) ==
LOC: ANHED 09:31 → ANH3MEDSUR 09:52
PROVIDERS: Nurse Practitioner Adult Health; Physician Assistant; Admitting Provider Internal Medicine; Emergency Provider Family Medicine; PCP Nurse Practitioner; Visit Provider Internal Medicine
DX: R11.2 Nausea with vomiting, unspecified (principal); R73.9 Hyperglycemia, unspecified; E87.6 Hypokalemia; R74.01 Elevation of levels of liver transaminase levels; D72.829 Elevated white blood cell count, unspecified; F41.9 Anxiety disorder, unspecified; F17.210 Nicotine dependence, cigarettes, uncomplicated; Z83.3 Family history of diabetes mellitus
CPT/HCPCS: 36415; 80048; 80053; 83036; 83605; 83735; 85025; 96361; 96374; 96375; 96376; 99285; A9270; G0378; J1650; J2405; J2470; J2550; J2765; J3360; J3480; J7030; J7040